=== PATIENT | female | born 1955 | race Caucasian/White ===

== ENCOUNTER → 2017-02-26 | Outpatient (CLI) | payer OTHER ==
[~2017-02-26] MED LIST: /CELE20CA PO; /WARF25TA PO; /WARF5TA PO; ACET-716 PO; ASPI81TA85; ASPIRIN PO; ATENPOW PO; CALCD50TA PO; CALCIUM PO; FISH1000 PO; FISHCAP PO; PERC7.5T12 PO; PERCOCET PO; PRAVASTATIN PO; TYLE325T5 PO; VERAPAMIL PO; VITAMIN D PO; ZANT150T PO; ZANTAC PO
--- NOTE | 2017-02-26 12:25 | REP ---
Lumbar spine five views: There are no comparisons. There is mild scoliosis convex right, possibly positional. Vertebral body heights and alignment are normal. There is no spondylolysis or spondylolisthesis. There is advanced degenerative disc disease at L5 S1. There is moderate congestive disc disease at the remainder of the lumbar interspaces. Mineralization is normal. The facets, sacroiliac articulations and pedicles are unremarkable. Impression: Multilevel mild degenerative disc disease most advanced at L5 S1. Mild scoliosis. Signed by Zak Soler MD 02/26/2017 12:16 P
== END ==
LOC: M ADAMS 10:23
PROVIDERS: ATTEND Physician Assistant Medical
DX: M51.37 Other intervertebral disc degeneration, lumbosacral region (principal); M51.9 Unspecified thoracic, thoracolumbar and lumbosacral intervertebral disc disorder

== ENCOUNTER → 2017-04-23 | Outpatient (CLI) | payer OTHER ==
--- NOTE | 2017-04-23 22:52 | ECHO ---
DATE OF PROCEDURE: 04/23/2017 AGE: 61 GENDER: Female HEIGHT: 64 inches WEIGHT: 154 pounds BODY SURFACE AREA: 1.75 m2 PATIENT LOCATION: Outpatient REFERRING PHYSICIAN: EVELINE Madera INDICATION: Aortic valve insufficiency (nonrheumatic). 2D MEASUREMENTS" RV: 3.0 cm LV: 4.6 cm Septum: 0.9 cm Posterior wall: 0.9 cm Aortic root: 2.9 cm LA: 2.8 cm LVEF: 65% DOPPLER MEASUREMENTS: AV: 1.3 m/s LVOT: 1.0 m/s LVOT diameter: 2.0 cm MV-E: 82 cm, A: 60, EA ratio: 1.4 Early mitral deceleration time: 187 ms E prime: 7.2, A prime: 8, EE prime ratio: 11.4 PV: 0.8 m/s Pulmonary artery acceleration time: 115 ms RVSP: 37 mmHg IVC: 1.8 cm COMMENTS: Normal sinus rhythm/sinus bradycardia without intraventricular conduction disturbance. Normal cardiac chamber sizes and wall thickness. On real-time imaging from the parasternal and apical projections wall motion was symmetrical and normal to hyperkinetic. Normal appearing mitral valvular apparatus and leaflet excursion with no posterior systolic buckling. Three equal size aortic cusps with marginally thickened cusp edges, but adequate cusp separation. Normal aortic root size. No apparent intracardiac mass or pericardial effusion. Color flow Doppler study taken from the parasternal and apical projections showed trace aortic, very mild mitral and mild tricuspid insufficiency. Guided continuous wave Doppler of her aortic valve showed a normal peak systolic velocity against LV outflow tract obstruction. Pulsed continuous wave Doppler of her LV inflow tract taken from the apical four-chamber projection showed normal diastolic filling velocities against mitral stenosis. There was also a normal diastolic filling pattern with estimated mean left atrial pressure within normal limits. Pulsed and continuous wave Doppler of her pulmonary trunk showed a normal peak systolic velocity against RV outflow tract obstruction. Pulmonary artery acceleration time was normal against an elevated pulmonary vascular resistance. Guided continuous wave Doppler of her tricuspid valve allowed our estimation of her right ventricular systolic pressure (mildly increased). Normal inferior vena cava (IVC) size and collapse against an elevated central venous pressure. CONCLUSIONS: Very mild aortic valvular sclerosis with trace insufficiency. Normal left ventricular size, wall thickness and wall motion. Normal left atrial size and Doppler assessment of LV diastolic function. Normal right heart chamber sizes and wall motion with Doppler evidence of mild pulmonary hypertension. Normal IVC size and collapse against an elevated central venous pressure.
== END ==
LOC: M CARPUL 08:24
PROVIDERS: ATTEND Physician Assistant Medical
DX: I35.1 Nonrheumatic aortic (valve) insufficiency (principal)

== ENCOUNTER → 2017-08-05 | Outpatient (REF) | payer OTHER | LOC: M SFHCWAGY 10:39 | PROVIDERS: ATTEND Nurse Practitioner Family | DX: Z12.4 Encounter for screening for malignant neoplasm of cervix (principal) ==

== ENCOUNTER → 2017-08-05 | Outpatient (CLI) | payer OTHER ==
--- NOTE | 2017-08-05 11:38 | REPMRS ---
Patient History The patient states she had a clinical breast exam in 07/2017. Patient is postmenopausal. Family history of prostate cancer in father and breast cancer in mother. Benign stereotactic cyst aspiration of the left breast. Digital Woman Screen Mammo: August 05, 2017 - Exam #: [id number] Bilateral CC and MLO view(s) were taken. Technologist: Emma Prakash Technologist Prior study comparison: August 03, 2016, digital woman screen mammo performed at [facility] [employer] [facility]. August 02, 2015, digital woman screen mammo performed at [facility]. 2013, diagnostic bilateral mammo, performed at [facility]. FINDINGS: The breast tissue is heterogeneously dense. This may lower the sensitivity of mammography. There is a needle biopsy marker clip in the left breast. There is a moderate amount of heterogeneously dense fibroglandular tissue which is fairly symmetric. There is no interval development of dominant mass, architectural distortion, or clustered microcalcification typical of malignancy. There has been no change in the appearance of the mammogram from the prior studies. ASSESSMENT: BI-RADS/ACR category 2 mammogram. Benign finding(s). Recommendation Routine screening mammogram of both breasts in 1 year (for women over age 40). This mammogram was interpreted with the aid of an FDA-approved computer-aided dectection system. Electronically Signed By: Miguel Angel Mullins MD 08/05/17 [id number]
== END ==
LOC: M WHC 10:03
PROVIDERS: ATTEND Nurse Practitioner Family
DX: Z12.31 Encounter for screening mammogram for malignant neoplasm of breast (principal); Z80.3 Family history of malignant neoplasm of breast

== ENCOUNTER → 2017-10-17 | Outpatient (REF) | payer OTHER | LOC: M LAB REF 12:07 | PROVIDERS: ATTEND Physician Assistant | DX: R30.0 Dysuria (principal) ==

== ENCOUNTER → 2018-04-12 | Outpatient (CLI) | payer OTHER ==
[2018-04-12 09:38] LABS: BASO # 0.1 10^3/uL (0.0-0.2); BASO % 0.7 % (0.0-1.0); EOS # 0.3 10^3/uL (0.0-0.50); EOS % 3.6 % (0.0-3.0); HEMATOCRIT 43.2 % (36.0-47.0); HEMOGLOBIN 14.5 g/dl (12.0-15.5); IMMATURE GRANULOCYTE % 0.4 % (0-3.0); LYMPH # 2.4 10^3/uL (1.5-4.5); LYMPH % 32.4 % (24.0-44.0); MEAN CORPUSCULAR HEMOGLOBIN 29.8 pg (27.0-33.0); MEAN CORPUSCULAR HGB CONC 33.6 g/dl (32.0-36.5); MEAN CORPUSCULAR VOLUME 88.7 fl (80.0-96.0); MONO # 0.7 10^3/uL (0.0-0.8); MONO % 9.7 % (0.0-5.0); NEUTROPHILS % 53.2 % (36.0-66.0); PLATELET COUNT, AUTOMATED 282 10^3/uL (150-450); RED BLOOD COUNT 4.87 10^6/uL (4.00-5.40); RED CELL DISTRIBUTION WIDTH 13.2 % (11.5-14.5); WHITE BLOOD COUNT 7.5 10^3/uL (4.0-10.0)
[2018-04-12 09:55] LABS: ALBUMIN 3.8 GM/DL (3.2-5.2); ALBUMIN/GLOBULIN RATIO 1.36 (1.00-1.93); ALKALINE PHOSPHATASE 81 U/L (45-117); ALT/SGPT 28 U/L (12-78); ANION GAP 5 MEQ/L (8-16); AST/SGOT 15 U/L (7-37); BLOOD UREA NITROGEN 17 MG/DL (7-18); CALCIUM LEVEL 8.8 MG/DL (8.8-10.2); CARBON DIOXIDE LEVEL 29 MEQ/L (21-32); CHLORIDE LEVEL 111 MEQ/L (98-107); CHOLESTEROL LEVEL 164 MG/DL (<200); CREATININE FOR GFR 0.84 MG/DL (0.55-1.30); GLOMERULAR FILTRATION RATE > 60.0 (>45); GLUCOSE, FASTING 97 MG/DL (70-100); HDL CHOLESTEROL 40 MG/DL (>40); LDL CHOLESTEROL 90.4 MG/DL (<100); NON-HDL-C 124 MG/DL; POTASSIUM SERUM 4.5 MEQ/L (3.5-5.1); SODIUM LEVEL 145 MEQ/L (136-145); TOTAL PROTEIN 6.6 GM/DL (6.4-8.2); TRIGLYCERIDES LEVEL 168 MG/DL (<150)
[2018-04-14 11:08] LABS: TOTAL 25(OH) VITAMIN D 33.4 NG/ML (30.0-100.0)
== END ==
LOC: M LAB 08:30
DX: E78.4 Other hyperlipidemia (principal); E55.9 Vitamin D deficiency, unspecified
CPT/HCPCS: 84443

== ENCOUNTER → 2018-08-07 | Outpatient (CLI) | payer OTHER | LOC: M WHC 09:33 | DX: Z12.31 Encounter for screening mammogram for malignant neoplasm of breast (principal); Z80.3 Family history of malignant neoplasm of breast; Z80.42 Family history of malignant neoplasm of prostate | CPT/HCPCS: 77067 ==

== ENCOUNTER → 2018-08-07 | Outpatient (REF) | payer OTHER ==
[2018-08-09 15:36] LABS: HPV HYBRID CAPTURE II Negative (Negative)
== END ==
LOC: M SFHCWAGY 09:37
DX: Z12.4 Encounter for screening for malignant neoplasm of cervix (principal)

== ENCOUNTER → 2018-12-02 | Outpatient (REF) | payer OTHER ==
[2018-12-02 20:15] LABS: BASO # 0.1 10^3/uL (0.0-0.2); BASO % 0.6 % (0.0-1.0); EOS # 0.2 10^3/uL (0.0-0.50); EOS % 2.6 % (0.0-3.0); LYMPH # 2.6 10^3/uL (1.5-4.5); MEAN CORPUSCULAR HEMOGLOBIN 29.2 pg (27.0-33.0); MEAN CORPUSCULAR HGB CONC 33.3 g/dl (32.0-36.5); MEAN CORPUSCULAR VOLUME 87.7 fl (80.0-96.0); MONO # 0.9 10^3/uL (0.0-0.8); MONO % 11.2 % (0.0-5.0); NEUTROPHILS # 4.3 10^3/uL (1.8-7.7); NEUTROPHILS % 53.4 % (36.0-66.0); PLATELET COUNT, AUTOMATED 270 10^3/uL (150-450); RED BLOOD COUNT 4.79 10^6/uL (4.00-5.40); WHITE BLOOD COUNT 8.1 10^3/uL (4.0-10.0)
== END ==
LOC: M SFHCADAM 14:09
PROVIDERS: ATTEND Physician Assistant Medical
DX: J01.90 Acute sinusitis, unspecified (principal)

== ENCOUNTER → 2019-08-18 | Outpatient (CLI) | payer OTHER ==
[~2019-08-18] MED LIST changes: -/CELE20CA PO; -/WARF25TA PO; -/WARF5TA PO; +CELE1CAP4 PO; +COUM1TAB17 PO; +COUM1TAB18 PO; +OXYC1TAB23 PO; -PERCOCET PO
--- NOTE | 2019-08-18 10:45 | REPMRS ---
Patient History The patient states she had a clinical breast exam in 08/2019. Patient is postmenopausal. Family history of prostate cancer in father, breast cancer in mother. Benign stereotactic cyst aspiration of the left breast. No Hormone Replacement Therapy 3D TOMOSYNTHESIS WAS PERFORMED. [facility] lifetime risk for breast cancer is 10.5%. Digital Woman Screen Mammo: August 18, 2019 - Exam #: [id number] Bilateral CC and MLO view(s) were taken. Technologist: Olga Pratt, Technologist Prior study comparison: August 07, 2018, bilateral digital woman screen mammo performed at [facility]. August 05, 2017, digital woman screen mammo performed at [facility]. FINDINGS: The breast tissue is heterogeneously dense. This may lower the sensitivity of mammography. There has been no change in the appearance of the mammogram from the prior studies. There is a moderate amount of residual fibroglandular tissue which is fairly symmetric. There is no interval development of dominant mass, areas of architectural distortion, or clustered microcalcification typical of malignancy. Assessment: BI-RADS/ACR category 1 mammogram. Negative Mammogram. Recommendation Routine screening mammogram in 1 year (for women over age 40). This mammogram was interpreted with the aid of an FDA-approved computer-aided dectection system. Electronically Signed By: aZk Valverde MD 08/18/19 [id number]
== END ==
LOC: M WHC 09:06
PROVIDERS: ATTEND Nurse Practitioner Family
DX: Z12.31 Encounter for screening mammogram for malignant neoplasm of breast (principal)

== ENCOUNTER → 2019-10-26 | Outpatient (CLI) | payer OTHER ==
[2019-10-26 09:21] LABS: BASO % 0.5 % (0.0-1.0); EOS # 0.3 10^3/uL (0.0-0.5); EOS % 3.6 % (0.0-3.0); HEMATOCRIT 43.6 % (36.0-47.0); HEMOGLOBIN 14.2 g/dl (12.0-15.5); LYMPH # 2.6 10^3/uL (1.5-5.0); LYMPH % 30.4 % (24.0-44.0); MEAN CORPUSCULAR HEMOGLOBIN 29.6 pg (27.0-33.0); MEAN CORPUSCULAR HGB CONC 32.6 g/dl (32.0-36.5); MONO # 0.9 10^3/uL (0.0-0.8); MONO % 10.2 % (0.0-5.0); NEUTROPHILS # 4.6 10^3/uL (1.5-8.5); NEUTROPHILS % 54.9 % (36.0-66.0); PLATELET COUNT, AUTOMATED 263 10^3/uL (150-450); RED BLOOD COUNT 4.79 10^6/uL (4.00-5.40); WHITE BLOOD COUNT 8.4 10^3/uL (4.0-10.0)
== END ==
LOC: M WUC 08:35
PROVIDERS: ATTEND Physician Assistant Medical
DX: J01.90 Acute sinusitis, unspecified (principal)

== ENCOUNTER → 2020-08-23 | Outpatient (CLI) | payer OTHER ==
--- NOTE | 2020-08-23 10:08 | REPMRS ---
Patient History The patient states she had a clinical breast exam in 2019. Family history of prostate cancer in father, breast cancer in mother. Benign stereotactic cyst aspiration of the left breast. No Hormone Replacement Therapy 3D TOMOSYNTHESIS WAS PERFORMED. The [facility] lifetime risk for breast cancer is 10.0%. VOLPARA DENSITY B. Digital Woman Screen Mammo: August 23, 2020 - Exam #: [id number] Bilateral CC and MLO view(s) were taken. Technologist: Demetria Merritt, Technologist Prior study comparison: August 18, 2019, bilateral digital woman screen mammo performed at [facility]. August 07, 2018, bilateral digital woman screen mammo performed at [facility]. FINDINGS: The breast tissue is heterogeneously dense. This may lower the sensitivity of mammography. There has been no change in the appearance of the mammogram from the prior studies. There is a moderate amount of residual fibroglandular tissue which is fairly symmetric. There is no interval development of dominant mass, areas of architectural distortion, or clustered microcalcification typical of malignancy. Assessment: BI-RADS/ACR category 1 mammogram. Negative Mammogram. Recommendation Routine screening mammogram in 1 year (for women over age 40). This mammogram was interpreted with the aid of an FDA-approved computer-aided dectection system. Electronically Signed By: Zak Valverde MD 08/23/20 [id number]
== END ==
LOC: M WHC 09:02
PROVIDERS: ATTEND Nurse Practitioner Family
DX: Z12.31 Encounter for screening mammogram for malignant neoplasm of breast (principal); Z80.3 Family history of malignant neoplasm of breast; Z86.018 Personal history of other benign neoplasm

== ENCOUNTER → 2020-08-23 | Outpatient (REF) | payer OTHER | LOC: M SFHCWAGY 13:11 | PROVIDERS: ATTEND Nurse Practitioner Family | DX: Z12.4 Encounter for screening for malignant neoplasm of cervix (principal) ==

== ENCOUNTER → 2020-09-05 | Outpatient (CLI) | payer MEDICARE ==
--- NOTE | 2020-09-05 09:26 | REP ---
INDICATION: NICOTINE DEPENDENCE H/O MULTI PULM NODULES COMPARISON: None. TECHNIQUE: Axial noncontrast images from the thoracic inlet to the upper abdomen using low-dose lung screening technique (LDCT). FINDINGS: The bilateral lung mie are well aerated, symmetric, and relatively clear. Few small noncalcified primarily subpleural densities measuring up to 3 mm as well as a small 4 mm left lower lobe density are again identified, remains stable through 2016 and 2013, and likely represents small scars. No acute consolidation, new significant nodule or mass lesion. No effusion. No pneumothorax. Tracheobronchial tree is patent. IMPRESSION: Lung RADS category 2. Stable findings compared through 2014. Management recommendations include annual surveillance. <Electronically signed by Ravi Tuttle > 09/05/20 [id number]
== END ==
LOC: M RAD 08:40
PROVIDERS: ATTEND Physician Assistant Medical
DX: F17.218 Nicotine dependence, cigarettes, with other nicotine-induced disorders (principal); Z87.898 Personal history of other specified conditions; Z12.2 Encounter for screening for malignant neoplasm of respiratory organs

== ENCOUNTER → 2021-03-18 | Outpatient (REF) | payer MEDICARE, OTHER | LOC: M LAB REF 19:22 | PROVIDERS: ATTEND Nurse Practitioner Family | DX: J02.9 Acute pharyngitis, unspecified (principal) ==

== ENCOUNTER → 2021-06-20 | Outpatient (REF) | payer MEDICARE, OTHER ==
[2021-06-20 18:19] LABS: BASO % 0.5 % (0.0-1.0); EOS # 0.3 10^3/uL (0.0-0.5); EOS % 3.1 % (0.0-3.0); HEMATOCRIT 46.1 % (36.0-47.0); HEMOGLOBIN 15.1 g/dl (12.0-15.5); LYMPH % 34.2 % (24.0-44.0); MEAN CORPUSCULAR HEMOGLOBIN 30.3 pg (27.0-33.0); MEAN CORPUSCULAR HGB CONC 32.8 g/dl (32.0-36.5); MEAN CORPUSCULAR VOLUME 92.4 fl (80.0-96.0); MONO # 0.9 10^3/uL (0.0-0.8); MONO % 10.4 % (2.0-8.0); NEUTROPHILS # 4.5 10^3/uL (1.5-8.5); NEUTROPHILS % 51.5 % (36.0-66.0); PLATELET COUNT, AUTOMATED 295 10^3/uL (150-450); RED BLOOD COUNT 4.99 10^6/uL (4.00-5.40); WHITE BLOOD COUNT 8.8 10^3/uL (4.0-10.0)
[2021-06-20 18:43] LABS: ALT/SGPT 48 U/L (12-78); BILIRUBIN,TOTAL 1.2 MG/DL (0.2-1.0); BLOOD UREA NITROGEN 12 MG/DL (7-18); CALCIUM LEVEL 9.1 MG/DL (8.8-10.2); CARBON DIOXIDE LEVEL 32 MEQ/L (21-32); CHLORIDE LEVEL 105 MEQ/L (98-107); CHOLESTEROL LEVEL 202 MG/DL (<200); GLOMERULAR FILTRATION RATE > 60.0 (>45); GLUCOSE, FASTING 84 MG/DL (70-100); HDL CHOLESTEROL 44 MG/DL (>40); NON-HDL-C 158 MG/DL; SODIUM LEVEL 143 MEQ/L (136-145); TOTAL PROTEIN 6.6 GM/DL (6.4-8.2); TRIGLYCERIDES LEVEL 426 MG/DL (<150)
[2021-06-20 18:52] LABS: TOTAL 25(OH) VITAMIN D 29.6 NG/ML (30.0-100.0)
== END ==
LOC: M SFHCADAM 15:15
PROVIDERS: ATTEND Physician Assistant Medical
DX: E55.9 Vitamin D deficiency, unspecified (principal); E78.2 Mixed hyperlipidemia; K21.9 Gastro-esophageal reflux disease without esophagitis; I35.1 Nonrheumatic aortic (valve) insufficiency; Z79.899 Other long term (current) drug therapy

== ENCOUNTER → 2022-01-31 | Outpatient (CLI) | payer MEDICAID, MEDICARE | LOC: M RAD 10:31 | PROVIDERS: ATTEND Physician Assistant Medical | DX: R91.8 Other nonspecific abnormal finding of lung field (principal); F17.210 Nicotine dependence, cigarettes, uncomplicated ==

== ENCOUNTER → 2022-02-12 | Outpatient (CLI) | payer MEDICAID, MEDICARE | LOC: M WHC 09:31 | PROVIDERS: ATTEND Physician Assistant Medical | DX: Z12.31 Encounter for screening mammogram for malignant neoplasm of breast (principal); Z80.3 Family history of malignant neoplasm of breast; R92.2 Inconclusive mammogram ==

== ENCOUNTER → 2022-06-28 | Outpatient (REF) | payer MEDICARE ==
[2022-06-28 16:37] LABS: BASO # 0.1 10^3/uL (0.0-0.2); BASO % 0.6 % (0.0-1.0); EOS # 0.2 10^3/uL (0.0-0.5); EOS % 2.2 % (0.0-3.0); HEMATOCRIT 44.7 % (36.0-47.0); HEMOGLOBIN 14.5 g/dl (12.0-15.5); LYMPH # 2.9 10^3/uL (1.5-5.0); LYMPH % 32.3 % (24.0-44.0); MEAN CORPUSCULAR HEMOGLOBIN 29.7 pg (27.0-33.0); MEAN CORPUSCULAR HGB CONC 32.4 g/dl (32.0-36.5); MEAN CORPUSCULAR VOLUME 91.4 fl (80.0-96.0); MONO # 0.9 10^3/uL (0.0-0.8); MONO % 9.7 % (2.0-8.0); NEUTROPHILS # 4.9 10^3/uL (1.5-8.5); PLATELET COUNT, AUTOMATED 285 10^3/uL (150-450); RED BLOOD COUNT 4.89 10^6/uL (4.00-5.40); WHITE BLOOD COUNT 8.9 10^3/uL (4.0-10.0)
[2022-06-28 18:59] LABS: ALBUMIN 3.7 GM/DL (3.2-5.2); ALT/SGPT 30 U/L (12-78); BILIRUBIN,TOTAL 1.2 MG/DL (0.2-1.0); BLOOD UREA NITROGEN 11 MG/DL (7-18); CARBON DIOXIDE LEVEL 27 MEQ/L (21-32); CHLORIDE LEVEL 105 MEQ/L (98-107); CHOLESTEROL LEVEL 159 MG/DL (<200); CHOLESTEROL RISK RATIO 3.533 (<5); CREATININE FOR GFR 0.78 MG/DL (0.55-1.30); GLOMERULAR FILTRATION RATE > 60.0 (>45); GLUCOSE, FASTING 73 MG/DL (70-100); HDL CHOLESTEROL 45 MG/DL (>40); LDL CHOLESTEROL 70 MG/DL (<100); NON-HDL-C 114 MG/DL; POTASSIUM SERUM 4.1 MEQ/L (3.5-5.1); SODIUM LEVEL 139 MEQ/L (136-145); THYROID STIMULATING HORMONE 0.712 uIU/ML (0.358-3.740); TOTAL PROTEIN 6.3 GM/DL (6.4-8.2); TRIGLYCERIDES LEVEL 222 MG/DL (<150)
[2022-06-28 19:38] LABS: TOTAL 25(OH) VITAMIN D 62.8 NG/ML (30.0-100.0)
== END ==
LOC: M SFHCADAM 12:16
PROVIDERS: ATTEND Physician Assistant
DX: E78.2 Mixed hyperlipidemia (principal); E55.9 Vitamin D deficiency, unspecified; I47.1 Supraventricular tachycardia

== ENCOUNTER → 2022-07-18 | Outpatient (REF) | payer MEDICARE ==
[2022-07-18 17:00] LABS: APPEARANCE, URINE MANUAL HAZY (CLEAR); COLOR, URINE MANUAL LT YELLOW (YELLOW)
[2022-07-18 17:01] LABS: BILIRUBIN, URINE MANUAL NEGATIVE (NEGATIVE); BLOOD URINE MANUAL POSITIVE (NEGATIVE); GLUCOSE, URINE (UA) MANUAL NEGATIVE (NEGATIVE); KETONE, URINE MANUAL NEGATIVE (NEGATIVE); LEUKOCYTE ESTERASE, URINE MAN TRACE (NEGATIVE); NITRITE, URINE MANUAL NEGATIVE (NEGATIVE); PH,URINE MAN 5.5 UNITS (5.0 - 7.0); PROTEIN, URINE MANUAL TRACE mg/dL (NEGATIVE); SPECIFIC GRAVITY,URINE MANUAL 1.015 (1.002-1.035); UROBILINOGEN, URINE MANUAL NORMAL (NORMAL)
[2022-07-18 19:06] LABS: RBC, URINE TNTC /hpf (0-3)
[2022-07-18 19:07] LABS: BACTERIA, URINE NONE SEEN; HYALINE CAST, URINE NONE SEEN /lpf (0-1); MUCUS, URINE SMALL AMOUNT (NEGATIVE); SQUAMOUS EPITHELIAL CELL URINE SMALL AMOUNT /hpf (SMALL AMT)
== END ==
LOC: M SFHCADAM 14:59
PROVIDERS: ATTEND Family Medicine
DX: N30.01 Acute cystitis with hematuria (principal)

== ENCOUNTER → 2022-08-07 | Outpatient (CLI) | payer MEDICARE | LOC: M RAD 08:00 | PROVIDERS: ATTEND Family Medicine | DX: R31.0 Gross hematuria (principal) ==

== ENCOUNTER → 2022-08-17 | Outpatient (REF) | payer MEDICARE, OTHER ==
[2022-08-17 18:17] LABS: APPEARANCE, URINE MANUAL CLEAR (CLEAR); BILIRUBIN, URINE MANUAL NEGATIVE (NEGATIVE); COLOR, URINE MANUAL YELLOW (YELLOW); GLUCOSE, URINE (UA) MANUAL NEGATIVE (NEGATIVE); KETONE, URINE MANUAL NEGATIVE (NEGATIVE); NITRITE, URINE MANUAL NEGATIVE (NEGATIVE); PROTEIN, URINE MANUAL NEGATIVE (NEGATIVE); SPECIFIC GRAVITY,URINE MANUAL 1.015 (1.002-1.035); UROBILINOGEN, URINE MANUAL NORMAL (NORMAL)
[2022-08-17 18:18] LABS: BLOOD URINE MANUAL POSITIVE (NEGATIVE); LEUKOCYTE ESTERASE, URINE MAN TRACE (NEGATIVE)
[2022-08-17 18:35] LABS: BACTERIA, URINE NONE SEEN; HYALINE CAST, URINE NONE SEEN /lpf (0-1); MUCUS, URINE SMALL AMOUNT (NEGATIVE); SQUAMOUS EPITHELIAL CELL URINE SMALL AMOUNT /hpf (SMALL AMT)
== END ==
LOC: M SMT 17:03
PROVIDERS: ATTEND Urology
DX: R31.0 Gross hematuria (principal); R82.998 Other abnormal findings in urine

== ENCOUNTER → 2022-08-22 | Outpatient (CLI) | payer MEDICARE, OTHER ==
[2022-08-22 12:52] LABS: BASO % 0.5 % (0.0-1.0); EOS # 0.4 10^3/uL (0.0-0.5); EOS % 5.1 % (0.0-3.0); HEMATOCRIT 45.6 % (36.0-47.0); HEMOGLOBIN 14.7 g/dl (12.0-15.5); LYMPH # 2.6 10^3/uL (1.5-5.0); LYMPH % 31.8 % (24.0-44.0); MEAN CORPUSCULAR HEMOGLOBIN 29.6 pg (27.0-33.0); MEAN CORPUSCULAR HGB CONC 32.2 g/dl (32.0-36.5); MEAN CORPUSCULAR VOLUME 91.8 fl (80.0-96.0); MONO # 0.7 10^3/uL (0.0-0.8); MONO % 8.6 % (2.0-8.0); NEUTROPHILS # 4.4 10^3/uL (1.5-8.5); NEUTROPHILS % 53.6 % (36.0-66.0); PLATELET COUNT, AUTOMATED 286 10^3/uL (150-450); RED BLOOD COUNT 4.97 10^6/uL (4.00-5.40); WHITE BLOOD COUNT 8.3 10^3/uL (4.0-10.0)
[2022-08-22 13:33] LABS: ERYTHROCYTE SEDIMENTATION RATE 4 mm/hr (0-30)
== END ==
LOC: M WUC 10:38
PROVIDERS: ATTEND Physician Assistant
DX: Z96.652 Presence of left artificial knee joint (principal); R31.0 Gross hematuria

== ENCOUNTER → 2022-08-22 | Outpatient (CLI) | payer MEDICARE, OTHER ==
[2022-08-22 13:41] LABS: BLOOD UREA NITROGEN 16 MG/DL (7-18); CALCIUM LEVEL 9.3 MG/DL (8.8-10.2); CARBON DIOXIDE LEVEL 28 MEQ/L (21-32); CHLORIDE LEVEL 108 MEQ/L (98-107); GLOMERULAR FILTRATION RATE > 60.0 (>45); GLUCOSE, FASTING 86 MG/DL (70-100); POTASSIUM SERUM 4.8 MEQ/L (3.5-5.1); SODIUM LEVEL 140 MEQ/L (136-145)
== END ==
LOC: M WUC 10:35
PROVIDERS: ATTEND Urology
DX: R31.0 Gross hematuria (principal)

== ENCOUNTER → 2022-08-24 | Outpatient (CLI) | payer MEDICARE, OTHER ==
[~2022-08-24] MED LIST changes: +ISOVUE-370 76% 100ML VIAL As Ordered ONE
== END ==
LOC: M RAD 15:04
PROVIDERS: ATTEND Urology
DX: R31.0 Gross hematuria (principal); K57.30 Diverticulosis of large intestine without perforation or abscess without bleeding; D73.4 Cyst of spleen; R93.89 Abnormal findings on diagnostic imaging of other specified body structures
CPT/HCPCS: 74178; Q9967

== ENCOUNTER → 2022-08-29 | Outpatient (REF) | payer MEDICARE, OTHER ==
[~2022-08-29] MED LIST changes: -ISOVUE-370 76% 100ML VIAL As Ordered ONE
[2022-08-29 15:15] LABS: APPEARANCE, URINE MANUAL CLEAR (CLEAR)
[2022-08-29 15:16] LABS: BILIRUBIN, URINE MANUAL NEGATIVE (NEGATIVE); BLOOD URINE MANUAL TRACE (NEGATIVE); COLOR, URINE MANUAL YELLOW (YELLOW); GLUCOSE, URINE (UA) MANUAL NEGATIVE (NEGATIVE); KETONE, URINE MANUAL NEGATIVE (NEGATIVE); LEUKOCYTE ESTERASE, URINE MAN NEGATIVE (NEGATIVE); NITRITE, URINE MANUAL NEGATIVE (NEGATIVE); PROTEIN, URINE MANUAL NEGATIVE (NEGATIVE); UROBILINOGEN, URINE MANUAL NORMAL (NORMAL)
[2022-08-29 16:04] LABS: BACTERIA, URINE NONE SEEN; HYALINE CAST, URINE NONE SEEN /lpf (0-1); SQUAMOUS EPITHELIAL CELL URINE SMALL AMOUNT /hpf (SMALL AMT)
[2022-08-29 16:07] LABS: WBC, URINE 0-1 /hpf (0-3)
== END ==
LOC: M SMT 13:06
PROVIDERS: ATTEND Urology
DX: Z87.898 Personal history of other specified conditions (principal)

== ENCOUNTER → 2022-08-30 | Outpatient (CLI) | payer MEDICARE, OTHER | LOC: M RAD 08:16 | PROVIDERS: ATTEND Physician Assistant | DX: Z96.652 Presence of left artificial knee joint (principal) | CPT/HCPCS: 78315; A9503 ==

== ENCOUNTER → 2022-09-21 | Outpatient (REF) | payer MEDICARE, OTHER ==
[2022-09-21 13:47] LABS: APPEARANCE, URINE MANUAL HAZY (CLEAR); COLOR, URINE MANUAL YELLOW (YELLOW)
[2022-09-21 13:48] LABS: BILIRUBIN, URINE MANUAL NEGATIVE (NEGATIVE); BLOOD URINE MANUAL TRACE (NEGATIVE); GLUCOSE, URINE (UA) MANUAL NEGATIVE (NEGATIVE); KETONE, URINE MANUAL NEGATIVE (NEGATIVE); LEUKOCYTE ESTERASE, URINE MAN NEGATIVE (NEGATIVE); NITRITE, URINE MANUAL NEGATIVE (NEGATIVE); PROTEIN, URINE MANUAL NEGATIVE (NEGATIVE); SPECIFIC GRAVITY,URINE MANUAL 1.015 (1.002-1.035); UROBILINOGEN, URINE MANUAL NORMAL (NORMAL)
[2022-09-21 14:12] LABS: BACTERIA, URINE NONE SEEN; HYALINE CAST, URINE NONE SEEN /lpf (0-1); MUCUS, URINE SMALL AMOUNT (NEGATIVE); SQUAMOUS EPITHELIAL CELL URINE SMALL AMOUNT /hpf (SMALL AMT); WBC, URINE 0-1 /hpf (0-3)
[2022-09-21 14:13] LABS: AMORPHOUS SEDIMENT, URINE SMALL AMOUNT (NEGATIVE)
== END ==
LOC: M SMT 13:13
PROVIDERS: ATTEND Urology
DX: Z09 Encounter for follow-up examination after completed treatment for conditions other than malignant neoplasm (principal); Z87.898 Personal history of other specified conditions; R82.998 Other abnormal findings in urine; Z79.899 Other long term (current) drug therapy; E78.5 Hyperlipidemia, unspecified; J44.9 Chronic obstructive pulmonary disease, unspecified; Z88.8 Allergy status to other drugs, medicaments and biological substances; Z96.653 Presence of artificial knee joint, bilateral; Z83.3 Family history of diabetes mellitus; Z82.49 Family history of ischemic heart disease and other diseases of the circulatory system; Z80.3 Family history of malignant neoplasm of breast; Z83.49 Family history of other endocrine, nutritional and metabolic diseases; Z82.0 Family history of epilepsy and other diseases of the nervous system; F17.210 Nicotine dependence, cigarettes, uncomplicated
CPT/HCPCS: 81000; 87086; 88108; G0463

== ENCOUNTER → 2023-02-01 | Outpatient (CLI) | payer MEDICARE, OTHER ==
[~2023-02-01] MED LIST changes: +ECOT81TA5 PO; +OMEG10002 PO
== END ==
LOC: M LABSMTC 08:18
PROVIDERS: ATTEND Anesthesiology
DX: Z01.812 Encounter for preprocedural laboratory examination (principal)

== ENCOUNTER 2023-02-06 13:08 | Day surgery (SDC) | payer MEDICARE, OTHER ==
[~2023-02-06] VITALS: Ht 162.6 cm; Wt 73.8 kg
[~2023-02-06 13:08] MED LIST changes: +BSS IRRIG/VANCO(10MG)/TOBRA(5MG)/EPINEPH(1:1000-0.5CC)500ML BAG-ORONLY IR ONE; +CEFUROXIME 1MG/0.1ML INTRACAMERAL INJ As Ordered ONE; +CYCLOPENTOLATE 1% OPHTH SOLN 2ML BTL OS SCH; +LIDOCAINE 1% SDV 5ML VIAL As Ordered ONE; +LIDOCAINE 3.5 % 1ML OPHTH TOPICAL GEL OU ONE; +OFLOXACIN 0.3 % (OCUFLOX) OPTH SOL 5ML OS ONE; +PHENYLEPHRINE 10% OPHTH SOL 5ML OS PRN; +PHENYLEPHRINE 2.5% OPHTH SOL 2ML OS SCH; +TROPICAMIDE 1% OPHTH SOLN 15ML OS SCH
[2023-02-06] MEDS ORDERED: MIDAZOLAM INJ 2MG/2ML VIAL As Ordered ONE (14:53)
[2023-02-06] MEDS ORDERED: fentaNYL 100 MCG/2 ML INJECTION As Ordered ONE (14:53)
[2023-02-06 15:20] VITALS: BP 152/70
== END 2023-02-06 15:20 | disposition home or self-care (01) ==
LOC: M SDC 13:08
PROVIDERS: ATTEND Ophthalmology
DX: H25.12 Age-related nuclear cataract, left eye (principal); E78.5 Hyperlipidemia, unspecified; K21.9 Gastro-esophageal reflux disease without esophagitis; F17.210 Nicotine dependence, cigarettes, uncomplicated; Z79.899 Other long term (current) drug therapy
CPT/HCPCS: 66984; 92015; J0697; J2250; J3010; V2632

== ENCOUNTER → 2023-02-11 | Outpatient (CLI) | payer MEDICARE, OTHER ==
[~2023-02-11] MED LIST changes: -BSS IRRIG/VANCO(10MG)/TOBRA(5MG)/EPINEPH(1:1000-0.5CC)500ML BAG-ORONLY IR ONE; -CEFUROXIME 1MG/0.1ML INTRACAMERAL INJ As Ordered ONE; -CYCLOPENTOLATE 1% OPHTH SOLN 2ML BTL OS SCH; -LIDOCAINE 1% SDV 5ML VIAL As Ordered ONE; -LIDOCAINE 3.5 % 1ML OPHTH TOPICAL GEL OU ONE; -OFLOXACIN 0.3 % (OCUFLOX) OPTH SOL 5ML OS ONE; -PHENYLEPHRINE 10% OPHTH SOL 5ML OS PRN; -PHENYLEPHRINE 2.5% OPHTH SOL 2ML OS SCH; -TROPICAMIDE 1% OPHTH SOLN 15ML OS SCH
== END ==
LOC: M LABSMTC 08:57
PROVIDERS: ATTEND Anesthesiology
DX: Z01.812 Encounter for preprocedural laboratory examination (principal); Z20.822 Contact with and (suspected) exposure to COVID-19

== ENCOUNTER → 2023-03-05 | Outpatient (CLI) | payer MEDICARE | LOC: M RAD 08:00 | PROVIDERS: ATTEND Physician Assistant Medical | DX: I70.0 Atherosclerosis of aorta (principal); I25.84 Coronary atherosclerosis due to calcified coronary lesion; F17.210 Nicotine dependence, cigarettes, uncomplicated ==

== ENCOUNTER → 2023-04-03 | Outpatient (REF) | payer MEDICARE | LOC: M SFHCADAM 11:27 | PROVIDERS: ATTEND Physician Assistant Medical | DX: Z12.11 Encounter for screening for malignant neoplasm of colon (principal); Z12.12 Encounter for screening for malignant neoplasm of rectum; Z83.49 Family history of other endocrine, nutritional and metabolic diseases ==

== ENCOUNTER → 2023-04-23 | Outpatient (REF) | payer MEDICARE ==
[2023-04-23 14:35] LABS: APPEARANCE, URINE CLEAR (CLEAR); BACTERIA, URINE AUTO NEGATIVE (NEGATIVE); BILIRUBIN, URINE AUTO NEGATIVE (NEGATIVE); BLOOD, URINE BLOOD 1+ (NEGATIVE); COLOR, URINE YELLOW (YELLOW); GLUCOSE, URINE (UA) AUTO NEGATIVE (NEGATIVE); KETONE, URINE AUTO NEGATIVE (NEGATIVE); LEUKOCYTE ESTERASE, URINE AUTO NEGATIVE (NEGATIVE); NITRITE, URINE AUTO NEGATIVE (NEGATIVE); PROTEIN, URINE AUTO NEGATIVE (NEGATIVE); RBC, URINE AUTO 1 /HPF (0-3); SPECIFIC GRAVITY URINE AUTO 1.008 (1.002-1.035); SQUAMOUS EPITHELIAL CELL UR AU 0 /HPF (0-6); UROBILINOGEN, URINE AUTO 0.2 mg/dL (0.0-2.0); WBC, URINE AUTO 0 /HPF (0-3)
== END ==
LOC: M SMT 13:16
PROVIDERS: ATTEND Urology
DX: Z87.898 Personal history of other specified conditions (principal)

== ENCOUNTER → 2023-05-15 | Outpatient (REF) | payer MEDICARE | LOC: M SMT 17:13 | PROVIDERS: ATTEND Urology | DX: Z87.898 Personal history of other specified conditions (principal) ==

== ENCOUNTER → 2023-07-23 | Outpatient (CLI) | payer MEDICARE | LOC: M WHC 13:37 | PROVIDERS: ATTEND Physician Assistant Medical | DX: Z12.39 Encounter for other screening for malignant neoplasm of breast (principal) ==

== ENCOUNTER → 2023-07-30 | Outpatient (REF) | payer MEDICARE | LOC: M SFHCADAM 08:58 | PROVIDERS: ATTEND Physician Assistant Medical | DX: Z11.1 Encounter for screening for respiratory tuberculosis (principal); Z92.29 Personal history of other drug therapy ==

== ENCOUNTER → 2023-07-31 | Outpatient (CLI) | payer MEDICARE | LOC: M WHC 11:32 | PROVIDERS: ATTEND Physician Assistant Medical | DX: R92.2 Inconclusive mammogram (principal) | CPT/HCPCS: 77065; G0279 ==

== ENCOUNTER → 2023-12-09 | Outpatient (CLI) | payer MEDICARE | LOC: M CARPUL 09:30 | PROVIDERS: ATTEND Physician Assistant Medical | DX: I08.3 Combined rheumatic disorders of mitral, aortic and tricuspid valves (principal) ==

== ENCOUNTER → 2024-08-31 | Outpatient (CLI) | payer MEDICARE | LOC: M RAD 09:58 | PROVIDERS: ATTEND Physician Assistant Medical | DX: Z12.2 Encounter for screening for malignant neoplasm of respiratory organs (principal); F17.210 Nicotine dependence, cigarettes, uncomplicated; R91.8 Other nonspecific abnormal finding of lung field ==

== ENCOUNTER → 2024-09-21 | Outpatient (CLI) | payer MEDICARE | LOC: M RAD 11:06 | PROVIDERS: ATTEND Nurse Practitioner Family | DX: M79.605 Pain in left leg (principal); R93.6 Abnormal findings on diagnostic imaging of limbs; M79.89 Other specified soft tissue disorders ==

== ENCOUNTER → 2024-09-21 | Outpatient (CLI) | payer MEDICARE | LOC: M WUC 10:21 | PROVIDERS: ATTEND Nurse Practitioner Family | DX: M79.605 Pain in left leg (principal); M79.89 Other specified soft tissue disorders ==

== ENCOUNTER → 2024-11-19 | Outpatient (CLI) | payer MEDICARE | LOC: M WHC 09:08 | PROVIDERS: ATTEND Physician Assistant Medical | DX: Z12.31 Encounter for screening mammogram for malignant neoplasm of breast (principal); Z78.0 Asymptomatic menopausal state; M85.89 Other specified disorders of bone density and structure, multiple sites; M85.88 Other specified disorders of bone density and structure, other site ==

== ENCOUNTER → 2025-03-09 | Outpatient (CLI) | payer MEDICARE ==
[2025-03-09 12:27] LABS: BASO # 0.1 10^3/uL (0.0-0.2); BASO % 0.7 % (0.0-1.0); EOS # 0.2 10^3/uL (0.0-0.5); HEMATOCRIT 43.8 % (36.0-47.0); HEMOGLOBIN 14.2 g/dl (12.0-15.5); LYMPH # 2.6 10^3/uL (1.5-5.0); LYMPH % 36.6 % (24.0-44.0); MEAN CORPUSCULAR HEMOGLOBIN 29.7 pg (27.0-33.0); MEAN CORPUSCULAR HGB CONC 32.4 g/dl (32.0-36.5); MEAN CORPUSCULAR VOLUME 91.6 fl (80.0-96.0); MONO # 0.7 10^3/uL (0.0-0.8); MONO % 9.4 % (2.0-8.0); NEUTROPHILS # 3.5 10^3/uL (1.5-8.5); NEUTROPHILS % 49.9 % (36.0-66.0); PLATELET COUNT, AUTOMATED 315 10^3/uL (150-450); RED BLOOD COUNT 4.78 10^6/uL (4.00-5.40)
[2025-03-09 12:36] LABS: ALBUMIN 3.6 G/DL (3.2-5.2); BILIRUBIN,TOTAL 1.2 MG/DL (0.3-1.2); CALCIUM LEVEL 9.2 MG/DL (8.3-10.6); CHOLESTEROL RISK RATIO 3.61 (<5); CREATININE FOR GFR 0.81 MG/DL (0.55-1.30); GLOMERULAR FILTRATION RATE 78.5 (>45); HDL CHOLESTEROL 42.6 MG/DL (>40); LDL CHOLESTEROL 76.6 MG/DL (<100); NON-HDL-C 111.4 MG/DL; POTASSIUM SERUM 3.9 MMOL/L (3.5-5.1); TOTAL PROTEIN 6.3 G/DL (5.7-8.2)
[2025-03-09 12:39] LABS: THYROID STIMULATING HORMONE 1.342 uIU/ML (0.55-4.78); TOTAL 25(OH) VITAMIN D 52.8 NG/ML (20.0-100.0)
== END ==
LOC: M WUC 08:07
PROVIDERS: ATTEND Physician Assistant Medical
DX: I47.10 Supraventricular tachycardia, unspecified (principal); E55.9 Vitamin D deficiency, unspecified; I35.1 Nonrheumatic aortic (valve) insufficiency; E78.2 Mixed hyperlipidemia; F17.210 Nicotine dependence, cigarettes, uncomplicated; G47.00 Insomnia, unspecified

== ENCOUNTER → 2025-09-27 | Outpatient (CLI) | payer MEDICARE | LOC: M RAD 16:54 | PROVIDERS: ATTEND Physician Assistant Medical | DX: Z12.2 Encounter for screening for malignant neoplasm of respiratory organs (principal); F17.210 Nicotine dependence, cigarettes, uncomplicated; R91.8 Other nonspecific abnormal finding of lung field ==